=== PATIENT | male | born 1960 | race African-American/Black ===

== ENCOUNTER 2025-03-15 12:55 | Inpatient (IN) | payer MEDICAID ==
[~2025-03-15] VITALS: Ht 170.2 cm; Wt 97.1 kg
[2025-03-15] MEDS ORDERED: IPRATROPIUM/ALBUTEROL 0.5-3(2.5)MG/3ML NEB HHN ONE (14:00)
[2025-03-15 14:37] LABS: BASOPHILS % 0.6 % (0.0-2.0); EOSINOPHILS % 6.7 % (0.0-5.0); HEMATOCRIT. 46.9 % (42.0-52.0); HEMOGLOBIN. 15.1 g/dL (14.0-18.0); LYMPHOCYTES % 24.0 % (20.0-50.0); MEAN PLATELET VOLUME 9.0 fl (7.4-10.4); MONOCYTES % 14.4 % (2.0-8.0); NEUTROPHILS % 54.3 % (40.0-76.0); PLATELET 205 x1000/uL (130-400); RED BLOOD CELL COUNT 5.24 mill/uL (4.7-6.1); RED CELL DISTRIBUTION WIDTH 16.6 % (11.6-14.6)
[2025-03-15 14:55] LABS: CREATININE 1.1 mg/dL (0.6-1.3); UREA NITROGEN BLOOD 14 mg/dL (9-23)
[2025-03-15 15:17] LABS: TROPONIN I HIGH SENSITIVITY 68 ng/L (3.0-53)
[2025-03-15 15:56] VITALS: PULSE 81; RESP 18; O2SAT 97
[2025-03-15] MEDS: IPRATROPIUM/ALBUTEROL 0.5-3(2.5)MG/3ML NEB HHN SCH (15:56)
[2025-03-15] MEDS ORDERED: MAGNESIUM/ALUMINUM HYDROXIDE/SIMETHICONE 30ML UDC PO PRN (17:15)
[2025-03-15] MEDS ORDERED: ENOXAPARIN 40MG/0.4ML SYR SUBCUT SCH (17:15)
[2025-03-15] MEDS ORDERED: ACETAMINOPHEN 325MG TABLET PO PRN (17:15)
[2025-03-15] MEDS ORDERED: ONDANSETRON HCL 4MG/2ML INJ IV PRN (17:15)
[2025-03-15] MEDS ORDERED: CLONIDINE 0.1MG TABLET PO PRN (17:15)
[2025-03-15] MEDS ORDERED: NALOXONE HCL 0.4MG/ML VIAL IV PRN (17:30)
[2025-03-15] MEDS: FUROSEMIDE 40MG/4ML VIAL IVP NR (19:12)
[2025-03-15] MEDS: PANTOPRAZOLE SODIUM 40 MG/VIAL IV SCH (19:12)
[2025-03-15] MEDS: ENOXAPARIN 30MG/0.3ML SYR SUBCUT SCH (19:20)
[2025-03-15 19:45] VITALS: BP 154/95; PULSE 82; RESP 17; TEMP 36.3624
[2025-03-15 20:00] VITALS: BP 154/95; PULSE 82; RESP 17; TEMP 36.3; O2SAT 92
[2025-03-16] VITALS (10 sets, daily range): BP systolic 117–138; BP diastolic 75–91; PULSE 74–91; RESP 16–21; TEMP 36.4–37.1; O2SAT 91–97
[2025-03-16 00:15] LABS: TROPONIN I HIGH SENSITIVITY 55 ng/L (3.0-53)
[2025-03-16] MEDS: IPRATROPIUM/ALBUTEROL 0.5-3(2.5)MG/3ML NEB NEB SCH (04:39)
[2025-03-16] MEDS ORDERED: FLUT1BLS3 INH (05:11)
[2025-03-16] MEDS ORDERED: EMPA10TA MT (05:11)
[2025-03-16] MEDS ORDERED: SACU1TAB7 MT (05:11)
[2025-03-16] MEDS ORDERED: ASPI-1497 MT (05:11)
[2025-03-16 06:38] LABS: BASOPHILS % 0.6 % (0.0-2.0); EOSINOPHILS % 10.0 % (0.0-5.0); HEMATOCRIT. 47.1 % (42.0-52.0); HEMOGLOBIN. 15.1 g/dL (14.0-18.0); LYMPHOCYTES % 24.3 % (20.0-50.0); MEAN PLATELET VOLUME 9.0 fl (7.4-10.4); MONOCYTES % 14.2 % (2.0-8.0); NEUTROPHILS % 50.9 % (40.0-76.0); PLATELET 207 x1000/uL (130-400); RED BLOOD CELL COUNT 5.22 mill/uL (4.7-6.1); RED CELL DISTRIBUTION WIDTH 16.3 % (11.6-14.6)
[2025-03-16 07:02] LABS: CREATININE 1.1 mg/dL (0.6-1.3); UREA NITROGEN BLOOD 11 mg/dL (9-23)
[2025-03-16 07:04] LABS: TROPONIN I HIGH SENSITIVITY 51 ng/L (3.0-53)
[2025-03-16] MEDS: HYDROCODONE/ACETAMINOPHEN 5/325MG TABLET PO PRN (18:24)
[2025-03-16] MEDS: METHYLPREDNISOLONE SOD SUCC 40MG/ML (ACT-O-VIAL) IV SCH (18:24)
[2025-03-16] MEDS: FUROSEMIDE 40MG/4ML VIAL IVP SCH (18:25)
[2025-03-16 18:33] LABS: *AMPHETAMINES SCREEN URINE NEGATIVE (NEGATIVE); *BARBITURATES SCREEN URINE NEGATIVE (NEGATIVE); *BENZODIAZEPINES SCREEN URINE NEGATIVE (NEGATIVE); *COCAINE SCREEN URINE NEGATIVE (NEGATIVE); CANNABINOID URINE SCREEN PRESUMPTIVE POSITIVE (NEGATIVE); ECSTASY MDMA SCREEN URINE NEGATIVE (NEGATIVE); METHADONE URINE SCREEN NEGATIVE (NEGATIVE); OPIATES URINE SCREEN NEGATIVE (NEGATIVE); PHENCYCLIDINE URINE SCREEN NEGATIVE (NEGATIVE)
[2025-03-16] MEDS: COLCHICINE 0.6MG TABLET PO SCH (21:57)
[2025-03-16] MEDS: ZOLPIDEM TARTRATE 5MG TABLET PO PRN (21:58)
[2025-03-17] VITALS (7 sets, daily range): BP systolic 115–138; BP diastolic 65–83; PULSE 86–92; RESP 16–20; TEMP 35.6–36.7; O2SAT 94–99
[2025-03-17 05:51] LABS: CREATININE 1.1 mg/dL (0.6-1.3); UREA NITROGEN BLOOD 15 mg/dL (9-23)
[2025-03-17 06:00] LABS: BASOPHILS % 0.1 % (0.0-2.0); EOSINOPHILS % 0.0 % (0.0-5.0); HEMATOCRIT. 48.0 % (42.0-52.0); HEMOGLOBIN. 15.2 g/dL (14.0-18.0); LYMPHOCYTES % 10.0 % (20.0-50.0); MEAN PLATELET VOLUME 8.9 fl (7.4-10.4); MONOCYTES % 1.4 % (2.0-8.0); NEUTROPHILS % 88.5 % (40.0-76.0); PLATELET 206 x1000/uL (130-400); RED BLOOD CELL COUNT 5.24 mill/uL (4.7-6.1); RED CELL DISTRIBUTION WIDTH 16.3 % (11.6-14.6)
[2025-03-17] MEDS ORDERED: METH4TAB95 MT (11:14)
[2025-03-17] MEDS ORDERED: FURO-151 MT (12:18)
== END 2025-03-17 12:55 | disposition home or self-care (01) | DRG 194 ==
LOC: ER 12:55 → EDBEDREQTM 16:04 → EDBEDREQSVC 16:04 → EDBEDREQ 16:04 → ENRESERV 18:09 → 5WST 19:49
PROVIDERS: ADMIT Internal Medicine; ATTEND Internal Medicine
DX: I11.0 Hypertensive heart disease with heart failure (principal); J96.91 Respiratory failure, unspecified with hypoxia; J44.1 Chronic obstructive pulmonary disease with (acute) exacerbation; I50.9 Heart failure, unspecified; J45.901 Unspecified asthma with (acute) exacerbation; M10.9 Gout, unspecified; E78.5 Hyperlipidemia, unspecified; I10 Essential (primary) hypertension; Z87.891 Personal history of nicotine dependence
CPT/HCPCS: 36415; 71045; 80048; 80305; 83880; 84484; 85025; 93005; 93970; 94070; 94640; 94664; 98960; 99285; J1650; J1938; J2470; J2919